=== PATIENT | female | born 1960 | race Caucasian/White ===

== ENCOUNTER 2022-02-03 07:40 | Day surgery (SDC) | payer OTHER ==
[~2022-02-03] VITALS: Ht 160 cm; Wt 61.2 kg
[2022-02-03] MEDS ORDERED: BENAZEPRIL HCL10 MG GT (07:56)
[2022-02-03] MEDS ORDERED: [UNRECOGNIZED DRUG - OTHER] PO (07:57)
[2022-02-03] MEDS ORDERED: LANACANE FIRST99 GM (07:58)
[2022-02-03] MEDS ORDERED: TYLENOL EXTRA500 MG PO (07:59)
[2022-02-03] MEDS ORDERED: VENTOLIN HFA18 GM INH (08:00)
[2022-02-03] MEDS ORDERED: ADVIL PM CAPLE1 EACH PO (08:00)
[2022-02-03] MEDS ORDERED: SYMBICORT 80-10.2 GM INH (08:01)
[2022-02-03] MEDS ORDERED: OMEPRAZOLE20 MG PO (08:02)
--- NOTE | 2022-02-03 09:49 | NUR ---
02/03/22 0949 Rebekah Segundo 0941-PATIENT ARRIVED TO PACU ON 2L NC RR EVEN. PATIENT REACTIVE TO VERBAL STIMULI REMAINS VERY DROWSY. IVF INFUSING. 0945-PATIENT SLEEPING APNEIC AROUSES TO VERBAL STIMULI OPENING EYES AN TAKING DEEP BREATHES. HOB ELEVATED. DOZES BACK TO SLEEP. 100% RA
--- NOTE | 2022-02-03 11:02 | NUR ---
1055: PT BACK TO DS RM 7 FROM PACU VIA STRETCHER DROWSY. PT AROUSES WITH VERBAL STIMULATION AND QUICKLY FALLS BACK ASLEEP. RESP EVEN AND UNLABORED, SATS GREATER THAN 94% ON RA. PT DENIES PAIN OR NAUSEA WHEN ASKED. CALL LIGHT WITHIN REACH.
--- NOTE | 2022-02-03 11:42 | NUR ---
PT ALERT AND AWAKE DENIES NAUSEA OR PAIN. PT SITTING AT THE EDGE OF BED, REPORTS SHE FEELS READY TO GET DRESSED.
--- NOTE | 2022-02-03 11:43 | NUR ---
DISCHARGE INSTRUCTIONS GIVEN TO PT SHE VOICED UNDERSTANDING.
--- NOTE | 2022-02-03 15:52 | OR ---
[facility] [address] [place], [place] [address] Signed DATE OF OPERATION: 02/03/2022 SURGEON: Jak Henderson MD PREOPERATIVE DIAGNOSES: 1. Gastroesophageal reflux disease. 2. Vomiting. 3. Smoker. POSTOPERATIVE DIAGNOSIS: Mild to moderate diffuse hemorrhagic gastritis. PROCEDURES: Esophagogastroduodenoscopy with CLOtest and biopsies of the antrum. ESTIMATED BLOOD LOSS: None. INDICATIONS: Amarilis is a 61-year-old female, asked to see me for upper endoscopy. She has had a long history of acid reflux. She tends to be noncompliant with her medications including omeprazole, Tagamet, and Carafate. She also describes vomiting. She has a long history of asthma and COPD. In the office, I gave her a pamphlet on upper endoscopy. We reviewed the nature of the test. There is risk including, but not limited to gas bloating, crampy abdominal pain, bleeding, perforation requiring surgery, and missed diagnosis. We also reviewed the need for IV conscious sedation. She had expressed understanding and wished to proceed. PROCEDURE IN DETAIL: Amarilis was taken into our endoscopy suite and placed in a supine semi-recumbent position. The posterior oropharynx was anesthetized with Hurricaine spray. A bite block was utilized for the case. She was given 4 mg of Versed and 100 mcg of fentanyl to cover the case. The adult gastroscope had been introduced and advanced out into the third portion of the duodenum. The duodenum and pyloric channel were unremarkable. However, the stomach showed mild to moderate diffuse hemorrhagic gastritis. We took pictures throughout for photodocumentation. We took a biopsy from the antrum for CLOtest as well as pathologic review. Upon retroflexion of scope we did not see an obvious hiatal hernia. The scope was withdrawn up through the area of the GE junction, which was compliant without stricture. She does have a little irritation around the Z-line, but otherwise no Alvarez's mucosa. There was no distal esophagitis. The middle and upper Electronically Signed By: JAK HENDERSON MD 02/03/22 1552 PATIENT NAME: XIOMARA VALLADARES OPERATIVE REPORT DATE OF : 56 REPORT #: [id number] PHYSICIAN: JAK HENDERSON MD PCP: JUSTEN DING PA-C REPORT IS CONFIDENTIAL AND NOT TO BE RELEASED WITHOUT AUTHORIZATION [facility] [address] [place] [id number] Signed esophagus were unremarkable. After this, the gas was suctioned out. The gastroscope removed. Amarilis tolerated the procedure quite well. RECOMMENDATIONS: I will see Amarilis back in my office in 7 to 14 days to review her results. She needs to be encouraged to take her omeprazole. MD RASHAD Zuniga/JONESL /[id number] cc: AJIT Page MD Copies: JAK HENDERSON MD ~ Electronically Signed By: JAK HENDERSON MD 02/03/22 1552 PATIENT NAME: TRACY VALLADARESRA PEDRAZA OPERATIVE REPORT DATE OF : 56 REPORT #: [id number] PHYSICIAN: JAK HENDERSON MD PCP: JUSTEN DING PA-C REPORT IS CONFIDENTIAL AND NOT TO BE RELEASED WITHOUT AUTHORIZATION
--- NOTE | 2022-02-06 15:50 | PATH ---
[facility] [address] [facility] [place], [place] [address] Signed SPECIMEN(S): A ANTRUM/PYLORUS BIOPSY SPECIMEN SOURCE: A. ANTRUM/PYLORUS BIOPSY CLINICAL HISTORY: Reflux FINAL PATHOLOGIC DIAGNOSIS: Antrum / pylorus biopsy: - Benign gastric-type mucosa with superficial chronic gastritis. - Helicobacter pylori immunostain is negative for organisms. JVR:rajani:C2NR MICROSCOPIC EXAMINATION: Histologic sections of all submitted blocks are examined by light microscopy. These findings, together with the gross examination, support the pathologic diagnosis. A Helicobacter pylori immunostain is performed with appropriate positive and negative controls on block (A1) and is negative for organisms. JVR:rajani GROSS DESCRIPTION: The specimen, labeled "KB, antrum/pylorus biopsy," is received in formalin and consists of one giraldo soft tissue fragment that measures 0.4 cm in greatest dimension. The specimen is entirely submitted in cassette (A1). HH (under the direct supervision of a pathologist) The Gross Description was prepared using a voice recognition system. The report was reviewed for accuracy; however, sound-alike word errors, addition and/or deletions may occur. If there is any question about this report, please contact Client Services. ADDITIONAL NOTES: Immunohistochemical and/or in situ hybridization studies were performed on this case with the appropriate positive controls that react as expected. This test was developed and its performance characteristics determined by [facility]. It has not been cleared or approved by the U.S. Food and Drug Administration. The FDA has determined that such clearance or approval is not necessary. This test is used for clinical purposes. It should not be regarded PATIENT NAME: XIOMARA VALLADARES PATHOLOGY DATE OF : 56 REPORT #: [id number] PHYSICIAN: EMILY LANDEROS PCP: JUSTEN DING PA-C REPORT IS CONFIDENTIAL AND NOT TO BE RELEASED WITHOUT AUTHORIZATION [facility] [address] [place], [place] [address] Signed as investigational or for research. [facility] is certified under the Clinical Laboratory Improvement Amendments of 1988 (CLIA) as qualified to perform high complexity clinical laboratory testing. This assay has not been validated for specimens that have been decalcified. PERFORMING LABORATORY: The technical component was performed by [facility], [address] [place] [address] (CLIA# [id number]). Professional interpretation was performed by [facility] - [facility], [address] [place] [id number] (CLIA#: [id number]). Diagnostician: Bryan Lamas MD Pathologist Electronically Signed 02/06/2022 Copies: ~ PATIENT NAME: XIOMARA VALLADARES PATHOLOGY DATE OF : 56 REPORT #: [id number] PHYSICIAN: EMILY LANDEROS PCP: JUSTEN DING PA-C REPORT IS CONFIDENTIAL AND NOT TO BE RELEASED WITHOUT AUTHORIZATION
== END 2022-02-03 11:55 | disposition home or self-care (01) ==
LOC: DS 07:40
PROVIDERS: ATTEND Colon & Rectal Surgery
PROC: 0DB68ZX Excision of Stomach, Via Natural or Artificial Opening Endoscopic, Diagnostic (ICD-10-PCS; principal; 2022-02-03 09:00)
DX: K29.51 Unspecified chronic gastritis with bleeding (principal); K21.9 Gastro-esophageal reflux disease without esophagitis; R11.10 Vomiting, unspecified; F17.200 Nicotine dependence, unspecified, uncomplicated; J44.9 Chronic obstructive pulmonary disease, unspecified; Z91.14 Patient's other noncompliance with medication regimen
CPT/HCPCS: 36415; 87077; G0500; J2250; J2405; J3010